=== PATIENT | female | born 1950 | race Two or more races ===

== ENCOUNTER 2016-06-09 13:24 | Emergency (ER) | payer SELFPAY ==
[~2016-06-09] VITALS: Ht 160 cm; Wt 72.6 kg
[2016-06-09 13:43] VITALS: BP 144/56
[2016-06-09] MEDS: FENTANYL PF 100 MCG/2 ML VIAL. IV PRN ×2 (14:21→14:55)
--- NOTE | 2016-06-09 14:27 | RAD ---
Exam performed: 2 views left humerus. History: Pain, status post fall. Date of service: 06/09/16. Comparison: None available I needs: AP and lateral view of the left humerus are obtained. There is a impacted nondisplaced fracture neck of left humerus. The visualized shoulder and elbow joint appear preserved. There is diffuse soft tissue swelling. No foreign body. Impression: Acute impacted nondisplaced fracture neck of left humerus.
[2016-06-09] MEDS ORDERED: HYDR-971 PO (14:51)
--- NOTE | 2016-06-09 14:52 | PHYS DOC ---
Past Medical History Past Medical History: Hypertension, Hypothyroid Past Surgical History: Cholecystectomy, , Hysterectomy Additional Past Surgical Histo: l ortho foot, Alcohol Use: Rarely Drug Use: None Adult General Chief Complaint Chief Complaint: MECHANICAL FALL HPI HPI Patient is a 65 year old female brought from home by family after a fall. The patient was walking down slowly steps when her foot slipped and she fell down about 3 steps, landed on her left side. She doesn't believe she hit her head. Her complaint at this time is left shoulder pain. If she moves at all her left shoulder hurts. She denies other pain at this time. Patient is [place] speaking, her brother is with her and translates. Patient does not work outside the home. She does not have a primary care doctor. No chronic medical problems. Review of Systems Review of Systems Constitutional: Denies fever or chills [] Eyes: Denies change in visual acuity, redness, or eye pain [] HENT: Denies nasal congestion or sore throat [] Respiratory: Denies cough or shortness of breath [] Cardiovascular: Denies chest pain GI: Denies abdominal pain, nausea, vomiting, bloody stools or diarrhea [] : Denies dysuria or hematuria [] Musculoskeletal: As in history of present illness Integument: Denies rash or skin lesions [] Neurologic: Denies headache, focal weakness or sensory changes [] Current Medications Current Medications Current Medications Medications (Trade) Dose Ordered Sig/Bucky Start Time Stop Time Status Last Admin Dose Admin Fentanyl Citrate (Fentanyl 2ml Vial) 50 mcg PRN Q15MIN PRN 06/09/16 14:00 06/10/16 13:59 06/09/16 14:21 50 MCG Allergies Allergies Allergies Coded Allergies Type Severity Reaction Last Updated Verified No Known Drug Allergies 06/09/16 No Physical Exam Physical Exam Constitutional: Well developed, well nourished, alert, mentating normally, left shoulder pain with any movement. HENT: Normocephalic, atraumatic, bilateral external ears normal, nose normal. [ ] Eyes: conjunctiva normal, no discharge. [] Neck: Normal range of motion, no tenderness, no stridor. [] Cardiovascular:Heart rate regular rhythm, no murmur [] Lungs & Thorax: Bilateral breath sounds clear to auscultation [] Skin: Warm, dry, no erythema, no rash. [] Back: No tenderness, no CVA tenderness. [] Extremities: Lower extremities bilaterally without tenderness or deformity with full range of motion. Left upper extremity: Shoulder does not appear to be dislocated. Clavicle nontender. Tender around the proximal humerus. Elbow, forearm, wrist, hand nontender. Capillary refill of the fingers. Able to move the left hand and fingers well. Neurologic: Alert and oriented X 3, normal motor function, normal sensory function, no focal deficits noted. [] Current Patient Data Vital Signs Vital Signs Date Time Temp Pulse Resp B/P Pulse Ox O2 Delivery O2 Flow Rate FiO2 06/09/16 14:50 18 96 Room Air 06/09/16 13:43 98.1 67 144/56 98.1 EKG EKG [] Radiology/Procedures Radiology/Procedures Three-view x-ray of the left humerus interpreted by me. Impacted fracture of the left humeral neck. Shoulder is not dislocated. [] Course & Med Decision Making Course & Med Decision Making Pertinent Labs and Imaging studies reviewed. (See chart for details) 65-year-old female had a fall on snow he steps and has a impacted fracture of the left humeral neck. I discussed with the patient, using her brother as an harness cleaner, that we will place her in a shoulder immobilizer and she will follow up with orthopedics. Referral was given. Talk to her about ice and pain medication usage. She understands and agrees the plan. [] Dragon Disclaimer Dragon Disclaimer This electronic medical record was generated, in whole or in part, using a voice recognition dictation system. Departure Departure Impression: Primary Impression: Fracture of neck of left humerus Disposition: 01 HOME, SELF-CARE Condition: STABLE Referrals: NO PCP (PCP) MICHAEL TOLLIVER MD Patient Instructions: Humerus Fracture, Treated with Immobilization Additional Instructions: You will need to wear the shoulder immobilizer until orthopedics tells you otherwise. You may carefully take it off and hold your arm next to your body to change clothes or use a washcloth to clean. You will need help getting it back on. Otherwise wear it 24 hours a day until orthopedics tells you you can change that. After a while they will let you switch to wearing only a sling. Keep ice on your shoulder 15-20 minutes out of every 1-2 hours for pain and swelling. The pain pills I prescribed are strong, they will make you sleepy, do not take while driving, they will cause constipation and you may need a mild laxative while taking. Call Saturday morning for orthopedics follow-up. You can see them any time in the next week or so. Scripts Hydrocodone/Apap 5-325 ([place] 5-325 Tablet)1 Each Tablet1-2 Tab PO Q4-6HRS #40 TAB For shoulder pain, broken bone Prov:SHIRIN PHELPS MD 06/09/16 SHIRIN PHELPS MD Jun 09, 2016 14:52
== END 2016-06-09 15:07 | disposition home or self-care (01) ==
LOC: ER 13:24
DX: S42.295A Other nondisplaced fracture of upper end of left humerus, initial encounter for closed fracture (principal); I10 Essential (primary) hypertension; E03.9 Hypothyroidism, unspecified; W10.8XXA Fall (on) (from) other stairs and steps, initial encounter; Y93.01 Activity, walking, marching and hiking; Y99.8 Other external cause status; Y92.89 Other specified places as the place of occurrence of the external cause
CPT/HCPCS: 29105; 73060; 96374; 96376; 99284; J3010